=== PATIENT | female | born 1940 | race Caucasian/White ===

== ENCOUNTER 2018-05-03 12:21 | Emergency (ER) | payer OTHER ==
[~2018-05-03] VITALS: Ht 167.6 cm; Wt 39.9 kg
[~2018-05-03 12:21] MED LIST: LEVAQUIN750 MG PO; MEDROL4 MG PO; XOPENEX0.63 MG/3 IH; XOPENEX1.25 MG/0. IH
[2018-05-03] MEDS ORDERED: PROTONIX40 M1 (12:43)
[2018-05-03] MEDS ORDERED: COZAAR25 MG (12:44)
[2018-05-03] MEDS ORDERED: COZAAR100 MG (12:45)
[2018-05-03] MEDS ORDERED: SINGULAIR10 MG (12:45)
[2018-05-03] MEDS ORDERED: ULTRACET PO (17:23)
== END 2018-05-03 18:02 | disposition home or self-care (01) ==
LOC: ER 12:21
DX: S20.212A Contusion of left front wall of thorax, initial encounter (principal); S20.211A Contusion of right front wall of thorax, initial encounter; S00.83XA Contusion of other part of head, initial encounter; W18.39XA Other fall on same level, initial encounter; Y93.89 Activity, other specified; Y92.098 Other place in other non-institutional residence as the place of occurrence of the external cause; Y99.8 Other external cause status

== ENCOUNTER 2018-05-05 12:24 | Inpatient (IN) | payer OTHER ==
[~2018-05-05] VITALS: Ht 165.1 cm; Wt 39.9 kg
[~2018-05-05 12:24] MED LIST changes: +COZAAR100 MG; +COZAAR25 MG; +PROTONIX40 M1; +SINGULAIR10 MG; +ULTRACET PO
[2018-05-18] MEDS ORDERED: APETIGEN L790 MG/15 PO (10:31)
[2018-05-18] MEDS ORDERED: PEPCID20 MG PO (10:31)
[2018-05-18] MEDS ORDERED: INTEGRA PLUS C1 EACH PO (10:31)
[2018-05-18] MEDS ORDERED: MONTELUKAST SOD10 MG PO (10:31)
== END 2018-05-18 14:23 | disposition home or self-care (01) | DRG 208 ==
LOC: ER 12:24 → ICU-2 05-06 12:11 → ICU 05-10 22:55 → MEDI 05-12 12:58
PROVIDERS: ADMIT Internal Medicine
PROC: 0BH17EZ Insertion of Endotracheal Airway into Trachea, Via Natural or Artificial Opening (ICD-10-PCS; principal; 2018-05-06)
PROC: 5A1945Z Respiratory Ventilation, 24-96 Consecutive Hours (ICD-10-PCS; 2018-05-06)
PROC: 4A12X4Z Monitoring of Cardiac Electrical Activity, External Approach (ICD-10-PCS; 2018-05-06)
PROC: 3E0F7GC Introduction of Other Therapeutic Substance into Respiratory Tract, Via Natural or Artificial Opening (ICD-10-PCS; 2018-05-06)
PROC: 4A033R1 Measurement of Arterial Saturation, Peripheral, Percutaneous Approach (ICD-10-PCS; 2018-05-06)
PROC: B246ZZZ Ultrasonography of Right and Left Heart (ICD-10-PCS; 2018-05-06)
PROC: BW25ZZZ Computerized Tomography (CT Scan) of Chest, Abdomen and Pelvis (ICD-10-PCS; 2018-05-06)
PROC: 0DH67UZ Insertion of Feeding Device into Stomach, Via Natural or Artificial Opening (ICD-10-PCS; 2018-05-08)
PROC: 3E0G76Z Introduction of Nutritional Substance into Upper GI, Via Natural or Artificial Opening (ICD-10-PCS; 2018-05-08)
PROC: B54DZZZ Ultrasonography of Bilateral Lower Extremity Veins (ICD-10-PCS; 2018-05-09)
DX: J96.02 Acute respiratory failure with hypercapnia (principal); J44.0 Chronic obstructive pulmonary disease with (acute) lower respiratory infection; N39.0 Urinary tract infection, site not specified; J96.01 Acute respiratory failure with hypoxia; E86.0 Dehydration; J47.9 Bronchiectasis, uncomplicated; R13.12 Dysphagia, oropharyngeal phase; Z66 Do not resuscitate; I87.2 Venous insufficiency (chronic) (peripheral); I83.893 Varicose veins of bilateral lower extremities with other complications; K62.89 Other specified diseases of anus and rectum; B96.29 Other Escherichia coli [E. coli] as the cause of diseases classified elsewhere

== ENCOUNTER 2018-05-20 01:33 | Inpatient (IN) | payer OTHER ==
[~2018-05-20] VITALS: Ht 167.6 cm; Wt 36.3 kg
[~2018-05-20 01:33] MED LIST changes: +APETIGEN L790 MG/15 PO; +INTEGRA PLUS C1 EACH PO; +MONTELUKAST SOD10 MG PO; +PEPCID20 MG PO
== END 2018-06-17 13:41 | disposition home or self-care (01) | DRG 393 ==
LOC: ER 01:33 → SEC-K 12:54 → MEDI 12:54
PROVIDERS: ADMIT Internal Medicine
PROC: 0DBP8ZX Excision of Rectum, Via Natural or Artificial Opening Endoscopic, Diagnostic (ICD-10-PCS; principal; 2018-05-21)
PROC: 0DBN8ZX Excision of Sigmoid Colon, Via Natural or Artificial Opening Endoscopic, Diagnostic (ICD-10-PCS; 2018-05-21)
PROC: 0W3P8ZZ Control Bleeding in Gastrointestinal Tract, Via Natural or Artificial Opening Endoscopic (ICD-10-PCS; 2018-05-21)
PROC: 30233N1 Transfusion of Nonautologous Red Blood Cells into Peripheral Vein, Percutaneous Approach (ICD-10-PCS; 2018-05-25)
PROC: 4A12X4Z Monitoring of Cardiac Electrical Activity, External Approach (ICD-10-PCS; 2018-05-29)
PROC: B54MZZZ Ultrasonography of Right Upper Extremity Veins (ICD-10-PCS; 2018-06-01)
PROC: 4A033R1 Measurement of Arterial Saturation, Peripheral, Percutaneous Approach (ICD-10-PCS; 2018-06-01)
PROC: 0BH17EZ Insertion of Endotracheal Airway into Trachea, Via Natural or Artificial Opening (ICD-10-PCS; 2018-06-01)
PROC: 5A1955Z Respiratory Ventilation, Greater than 96 Consecutive Hours (ICD-10-PCS; 2018-06-01)
PROC: BW21ZZZ Computerized Tomography (CT Scan) of Abdomen and Pelvis (ICD-10-PCS; 2018-06-03)
PROC: 8E0ZXY6 Isolation (ICD-10-PCS; 2018-06-04)
PROC: 3E0F7GC Introduction of Other Therapeutic Substance into Respiratory Tract, Via Natural or Artificial Opening (ICD-10-PCS; 2018-06-09)
DX: D12.8 Benign neoplasm of rectum (principal); J96.02 Acute respiratory failure with hypercapnia; K62.5 Hemorrhage of anus and rectum; A31.8 Other mycobacterial infections; B37.49 Other urogenital candidiasis; N39.0 Urinary tract infection, site not specified; D50.0 Iron deficiency anemia secondary to blood loss (chronic); Z88.2 Allergy status to sulfonamides; E86.0 Dehydration; F41.1 Generalized anxiety disorder; F43.22 Adjustment disorder with anxiety; J47.9 Bronchiectasis, uncomplicated; K21.9 Gastro-esophageal reflux disease without esophagitis; B95.2 Enterococcus as the cause of diseases classified elsewhere

== ENCOUNTER 2018-06-30 23:39 | Inpatient (IN) | payer OTHER ==
[~2018-06-30] VITALS: Ht 165.1 cm; Wt 49.9 kg
--- NOTE | 2018-06-30 23:47 | NUR ---
SE RECIBE PTE ALERTA Y ORIENTADA POR AARON EN AMBULANCIA EN COMPANIA DE FAMILIAR LA CUAL REFIERE QUE LA PTE PRESENTA DIFICULTAD RESPIRATORIA DESDE LAS 10:10PM. PTE ES PRESENTADA A DR. FAULKNER POR PERSONAL PARAMEDICO. SE COLOCA A PTE EN CAROLA CON BARANDAS ELEVADA Y CONECTADA A MONITOR CARDIACO.
--- NOTE | 2018-07-01 00:12 | NUR ---
SE RECIBE PTE FEMENINA ALERTA Y ORIENTADA X3,EN AMBUMBULANCIA ACOMPANADA DE FAMILIAR,ES EVALUADA POR ,SE ORIENTA SOBRE ORDEN MEDICA,SE TAMMI MUESTRAS Y SE ENVIAN A LABORATORIO,SE CANALIZA Y COLOCAN 2 H/L,SE COLOCA C/N A 2LTRS,SE CONECTA A MONIOTOR CARDIACO AVTAR CON OXIMETRIA CONTINUA EN CAMA K-8,SE NOTIFICA A TERAPIA RESPIRATORIA SOBRE ABG,SE ADMINISTRA MEDICAMWENTO EL CUAL TOLERA,SE REALIZA EKG Y SE ENTREGA A MD,SE COLOCA PATINO SIGUIENDO MEDIDAS ASEPTICAS,SE MANTIENE A PTE EN =GILANCIA AVTAR POR CAMBIOS. SE OBSERVA A PTE EN AREA DE LA NARIZ LACERACION.
--- NOTE | 2018-07-01 07:01 | NUR ---
SE RECIBE PACIENTE EN CAMA.DESPIERTA ALERTA,ACOMPANADA POR FAMILIAR. CONECTADA A MONITOR CARDIACO Y OXIMETRIA.AREA DE VENOPUNCION ESTA LIMPIA Y SECA,LORIE DE EDEMA.CAREY ROWAN COLOR AMARILLO INTENSO. FAMILIARES SON ORIENTADOS SOBRE PROCEDIMIENTOS A LLEVARSE A CABO,LO CUAL REFIERE COMPRENDER.
--- NOTE | 2018-07-01 09:08 | NUR ---
SE DA JAK A PTE. Y SE LE CAMBIA ROPA DE CAMA Y SE LE PROVE PAMPER EN COMPANIA DE SANDRA JACKSON.
[2018-07-10] MEDS ORDERED: MONTELUKAST SOD10 MG PO (11:54)
[2018-07-10] MEDS ORDERED: SANTYL OINT.30 GM TOP (11:54)
[2018-07-10] MEDS ORDERED: PRE PROTEIN 2030 ML PO (11:54)
[2018-07-10] MEDS ORDERED: FAMOTIDINE20 MG PO (11:54)
[2018-07-10] MEDS ORDERED: SPIRONOLACTONE25 MG PO (11:54)
[2018-07-10] MEDS ORDERED: DELZICOL400 M1 PO (11:54)
[2018-07-10] MEDS ORDERED: APETIGEN L790 MG/15 PO (11:54)
[2018-07-10] MEDS ORDERED: TOPROL XL25 M1 PO (11:54)
[2018-07-10] MEDS ORDERED: FUROSEMIDE20 MG PO (11:54)
[2018-07-10] MEDS ORDERED: ZINC OXIDE TOP (11:54)
== END 2018-07-10 17:08 | disposition home or self-care (01) | DRG 189 ==
LOC: ER 23:39 → MEDI 07-01 13:07
PROVIDERS: ADMIT Internal Medicine
PROC: 5A09557 Assistance with Respiratory Ventilation, Greater than 96 Consecutive Hours, Continuous Positive Airway Pressure (ICD-10-PCS; principal; 2018-07-01)
PROC: 4A033R1 Measurement of Arterial Saturation, Peripheral, Percutaneous Approach (ICD-10-PCS; 2018-07-01)
PROC: 3E0F7GC Introduction of Other Therapeutic Substance into Respiratory Tract, Via Natural or Artificial Opening (ICD-10-PCS; 2018-07-01)
PROC: 4A12X4Z Monitoring of Cardiac Electrical Activity, External Approach (ICD-10-PCS; 2018-07-01)
DX: J96.02 Acute respiratory failure with hypercapnia (principal); J90 Pleural effusion, not elsewhere classified; I50.89 Other heart failure; D50.0 Iron deficiency anemia secondary to blood loss (chronic); J47.9 Bronchiectasis, uncomplicated; E86.0 Dehydration; I10 Essential (primary) hypertension; K21.9 Gastro-esophageal reflux disease without esophagitis; K62.89 Other specified diseases of anus and rectum; Z99.81 Dependence on supplemental oxygen; Z66 Do not resuscitate; Z88.2 Allergy status to sulfonamides

== ENCOUNTER 2019-12-02 13:47 | Outpatient (CLI) | payer OTHER ==
[~2019-12-02 13:47] MED LIST changes: +DELZICOL400 M1 PO; +FAMOTIDINE20 MG PO; +FUROSEMIDE20 MG PO; +PRE PROTEIN 2030 ML PO; +SANTYL OINT.30 GM TOP; +SPIRONOLACTONE25 MG PO; +TOPROL XL25 M1 PO; +ZINC OXIDE TOP
== END 2019-12-02 16:33 | disposition home or self-care (01) ==
LOC: TOM 13:47
PROVIDERS: ATTEND Specialist
DX: A31.0 Pulmonary mycobacterial infection (principal)

== ENCOUNTER 2020-09-09 12:56 | Outpatient (CLI) | payer OTHER | END 2020-09-09 13:01 | disposition home or self-care (01) | LOC: TOM 12:56 | PROVIDERS: ATTEND Internal Medicine Gastroenterology | DX: R05 Cough (principal); Q33.8 Other congenital malformations of lung ==

== ENCOUNTER 2020-11-09 14:00 | Outpatient (CLI) | payer OTHER | END 2020-11-09 14:13 | disposition home or self-care (01) | LOC: MRI 14:00 | PROVIDERS: ATTEND Otolaryngology | DX: G31.89 Other specified degenerative diseases of nervous system (principal) | CPT/HCPCS: 70551 ==